=== PATIENT | female | born 1945 | race Caucasian/White ===

== ENCOUNTER 2022-07-14 10:12 | Inpatient (IN) | payer OTHER, MEDICARE ==
[~2022-07-14] VITALS: Ht 167.6 cm; Wt 67.4 kg
[2022-07-14 11:03] LABS: BASOPHILS ABSOLUTE AUTO 0.06 K/mm3 (0.00-0.23); BASOPHILS PERCENT AUTO 0 % (0-2); EOSINOPHILS PERCENT AUTO 2 % (0-6); Hematocrit 41.9 % (33.0-51.0); Hemoglobin 13.8 g/dL (11.5-16.0); IMMATURE GRAN ABSOLUTE AUTO 0.07 K/mm3 (0.00-0.10); IMMATURE GRAN PERCENT AUTO 1 % (0-1); LYMPHOCYTES ABSOLUTE AUTO 1.89 K/mm3 (0.84-5.20); LYMPHOCYTES PERCENT AUTO 14 % (21-46); MONOCYTES ABSOLUTE AUTO 0.55 K/mm3 (0.16-1.47); MONOCYTES PERCENT AUTO 4 % (4-13); Mean Corpuscular HGB 31.9 pg (26.0-34.0); Mean Corpuscular HGB Conc 32.9 g/dL (31.5-36.5); Mean Corpuscular Volume 97 fL (80-100); Mean Platelet Volume 10.2 fL (9.1-12.4); NEUTROPHILS ABSOLUTE AUTO 10.95 K/mm3 (1.96-9.15); NEUTROPHILS PERCENT AUTO 80 % (41-73); Platelet Count 269 K/mm3 (150-400); RDW Coefficient Variation 13.1 % (11.7-14.2); RDW Standard Deviation 46.5 fL (35.1-46.3); Red Blood Cell Count 4.32 M/mm3 (3.80-5.20); White Blood Cell Count 13.72 K/mm3 (4.00-11.30)
[2022-07-14 11:31] LABS: Bun/Creatinine Ratio 21.9 (12.0-20.0); Calcium, Blood 9.1 mg/dL (8.5-10.1); Creatinine, Blood 0.68 mg/dL (0.40-1.00); Potassium, Blood 3.9 mmol/L (3.5-5.5)
[2022-07-14] MEDS ORDERED: ATOR40TA PO (15:08)
[2022-07-14] MEDS ORDERED: CYMBALTA30 M2 PO (15:09)
[2022-07-14] MEDS ORDERED: IBU800 M1 PO (15:10)
--- NOTE | 2022-07-14 16:04 | NUR ---
ARRIVED FROM THE ED VIA JAIR, OLIVIA, A&OX4, C/O R HIP PAIN, REPORTS HAVING HX OF RA W/ NUMBNESS AND TINGLING TO BLE'S, DENIES ANY NEW NUMBNESS AND TINGLING, PEDAL PULSES PALPABLE, DR. ANGILN NOTIFIED OF PT ADMISSION, HERE TO SEE PT.
--- NOTE | 2022-07-14 17:37 | NUR ---
SUMMARY ER ADMIT TODAY FOR R HIP FX, DR. ANGLIN HERE TO SEE PT, PLAN FOR OR TOMORROW, MEDICATED WITH DILAUDID ONCE THIS SHIFT, PT TOLERATED FAIRLY WELL, REPORTS PAIN IS "BETTER THAN IT WAS" CONT. PULSE OX IN PLACE FOR HIGH RISK PAIN MANAGEMENT, NO ACUTE CHANGES THIS SHIFT.
[2022-07-15 04:33] LABS: BASOPHILS ABSOLUTE AUTO 0.04 K/mm3 (0.00-0.23); BASOPHILS PERCENT AUTO 0 % (0-2); EOSINOPHILS ABSOLUTE AUTO 0.15 K/mm3 (0.00-0.68); EOSINOPHILS PERCENT AUTO 1 % (0-6); Hematocrit 35.8 % (33.0-51.0); Hemoglobin 12.1 g/dL (11.5-16.0); IMMATURE GRAN ABSOLUTE AUTO 0.03 K/mm3 (0.00-0.10); IMMATURE GRAN PERCENT AUTO 0 % (0-1); LYMPHOCYTES PERCENT AUTO 10 % (21-46); MONOCYTES ABSOLUTE AUTO 0.75 K/mm3 (0.16-1.47); MONOCYTES PERCENT AUTO 6 % (4-13); Mean Corpuscular HGB 32.7 pg (26.0-34.0); Mean Corpuscular HGB Conc 33.8 g/dL (31.5-36.5); Mean Corpuscular Volume 97 fL (80-100); Mean Platelet Volume 10.1 fL (9.1-12.4); NEUTROPHILS ABSOLUTE AUTO 9.63 K/mm3 (1.96-9.15); NEUTROPHILS PERCENT AUTO 82 % (41-73); Platelet Count 206 K/mm3 (150-400); RDW Coefficient Variation 13.2 % (11.7-14.2); RDW Standard Deviation 46.9 fL (35.1-46.3)
[2022-07-15 05:02] LABS: Bun/Creatinine Ratio 21.7 (12.0-20.0); Calcium, Blood 9.2 mg/dL (8.5-10.1); Creatinine, Blood 0.79 mg/dL (0.40-1.00)
--- NOTE | 2022-07-15 05:55 | NUR ---
SHIFT SUMMARY PT A&OX4, PLEASANT AND COOPERATIVE. PAIN COVERED WITH 0.5MCG OF DILAUDID, WITH EFFECT. PT REMAINS ON OXYGEN, INCREASED TO 4.5L THEY PT STATED TO DESAT WHILE SLEEPING, CONT PULSE OX AT BEDSIDE. NPO SINCE MIDNIGHT. CALLS APPROPRIATELY, CALL LIGHT WITHIN REACH.
--- NOTE | 2022-07-15 07:56 | NUR ---
AWAKE, C/O 7/10 PAIN ON R HIP, MEDICATED PER EMAR, DENIES ANY NAUSEA OR SOB, SATS 87% ON 5L NC, PT PLACED ON 7L O2 VIA OXYMIZER, STATS IMPROVED TO 89%, CONT. TO MONITOR FOR ANY CHANGES.
--- NOTE | 2022-07-15 10:39 | NUR ---
ENCOURAGED TO USE IS, AND TO COUGH AND DEEP BREATHE, SATS CURRENTLY AT 90% ON 7L O2 OXYMIZER.
--- NOTE | 2022-07-15 11:56 | NUR ---
PT TAKEN TO DAY SURGERY.
--- NOTE | 2022-07-15 15:51 | NUR ---
PT ARRIVAL TO ICU... PT ARRIVED TO ICU 16 AT 1446 FROM THE PACU. THE PT WAS ON A NRB MASK AT 10L WITH O2 SATS IN THE MID 80'S TO LOW 90'S. THE PT WAS A&Ox4 BUT SLEEPY. L/S COARSE T/O WITH SLIGHT WHEEZES IN THE UPPER LOBES. RR WAS IN THE 20'S. PT WAS IN SINUS TACH IN THE LOW 100'S BP STABLE WITH MAPS >65. NO EDEMA NOTED ON ASSESSMENT. THE PT IS S/P RIGHT HIP REPAIR. THE PT IS C/O OF 8/10 PAIN TO THE RIGHT HIP. THE PT WAS PLACED ON THE AIRVO AT 50L AND 93% TO KEEP O2 SATS >89%. THE PT WAS MEDICATED FOR PAIN PER EMAR AND USED THE BED PASTOR TO VOID. WILL CONTINUE TO MONITOR.
--- NOTE | 2022-07-15 17:07 | NUR ---
SHIFT SUMMARY.... NO ACUTE NEGATIVE CHANGES ASSESSED SINCE PREVIOUS NOTE. THE PT CONTINUES ON THE AIRVO AT 50L AND 95% WITH O2 SATS >90%. L/S COARSE T/O WITH SCATTERED WHEEZES THAT RESPOND TO NEBULIZER TREATMENTS. THE PT HAS BEEN MEDICATED FOR PAIN PER EMAR. NEW ORDERS FOR PO OXYCODONE OBTAINED FROM DR. FERNANDEZ. THE PT HAS USED THE BEDPAD TO VOID SEVERAL TIMES. THE PT'S HR AND BP CONTINUES TO BE STABLE. CALL LIGHT IN REACH WILL CONTINUE TO MONITOR UNTIL REPORT IS GIVEN TO ONCOMING RN.
--- NOTE | 2022-07-15 18:04 | NUR ---
PT UPDATE... WHILE THE PT WAS EATING HER DINNER THE PT SAID THAT SOME OF THE FOOD "WENT DOWN THE WRONG PIPE." THE PT'S O2 SATS DROPPED DOWN TO THE 60'S AND SHE THREW UP. RT WAS CALLED, THE PT'S AIRVO FLOW WAS INCREASED TO 60L AND 95%, THE PT'S O2 SATS IMPROVED. L/S WERE COARSE T/O AND SOUND THE SAME THE PREVIOUS ASSESSMENT. THE PT TOLD THIS RN THAT SHE HAS "THESE SAME ISSUES AT HOME ONCE IN A WHILE." WILL CONTINUE TO MONITOR.
--- NOTE | 2022-07-15 19:10 | NUR ---
TOOK OVER CARE OF PT AT 1900, PT RESTING ON AIRVO 60L 92%. SCANT SHADOWING NOTED ON RT FEMUR DRESSINGS. ICE PACKS IN PLACE, PILLOW PLACED BETWEEN KNEES.
[2022-07-15 20:37] LABS: Hematocrit 37.2 % (33.0-51.0); Hemoglobin 12.2 g/dL (11.5-16.0)
--- NOTE | 2022-07-16 04:54 | NUR ---
SUMMARY NEURO: WNL- HX OF RA LUNGS: PT IS ON 60L 95% AIRVO. EXP. WHEEZES HEARD. PT PULLING 500ML ON INCENTIVE SPIROMETER. PT IS BECOMING MORE FRAGILE SHIFT GOES ON WITH OXYGEN REQUIREMENTS AND DESATS TO LOW 80'S WHEN COUGHING. WET COUGH WITH NO SPUTUM. NO CRACKLES HEARD IN BASES AT THIS TIME. CV: PULSES PRESENT THROUGHOUT WITHOUT THE USE OF DOPPLER. PT IS NSR, BORDERLINE BLOOD PRESSURES. 2L NS BOLUS GIVEN AND FLUIDS STARTED. MAP'S IN THE HIGH 60'S. SCD'S IN PLACE. GI: WNL- CONCERN FOR ASPIRATION, SWALLOW EVAL ORDERED. : WNL- PT UTILIZING FRACTURE PASTOR SKIN: INCISION TO RIGHT LATERAL THIGH, TWO SURGICAL DRESSING INTACT. NO NEW SHAWOWING OF DRAINAGE SINCE THE BEGINNING OF THIS SHIFT. CHG BATH COMPLETED
--- NOTE | 2022-07-16 12:10 | NUR ---
TRANSFER TO SURGICAL FLOOR - RM 218 VIA HOSPITAL BED, 4 PERSON TRANSFER TO BED. ALERT, ORIENTED, PLEASANT & THANKFUL. RT IN ROOM TO SET UP HIGH FLOW HEATED O2. CONT BIOX SET UP. PT HAS MOIST COUGH, PRODUCTIVE, STRONG. LUNGS w/ EXP WHEEZE T/O. DR FERNANDEZ CALLED FOR TYLENOL PER PT REQUEST FOR SOARES. PPP. R HIP w/ AQUACEL x 2. SCANT DRNG. 1+ EDEMA TO R HIP.
--- NOTE | 2022-07-16 17:22 | NUR ---
SHIFT SUMMARY PT HAS DONE WELL SINCE ARRIVING FROM PCU. STRONG PROD COUGH. CONT BIOX IN PLACE. IVF & ABX CONTINUE TO INFUSE. PT ORDERED & WILL WORK w/ THEM TOMORROW.
[2022-07-17 05:01] LABS: Albumin, Blood 2.3 g/dL (3.4-5.0); Anion Gap 6 mmol/L (6-16); Blood Urea Nitrogen 22 mg/dL (8-24); Bun/Creatinine Ratio 38.9 (12.0-20.0); CO2, Blood 25 mmol/L (21-32); Calcium, Blood 8.8 mg/dL (8.5-10.1); Chloride, Blood 112 mmol/L (98-108); Creatinine, Blood 0.57 mg/dL (0.40-1.00); Glomerular Filtration Rate 92 (60-); Glucose, Blood 162 mg/dL (70-99); Phosphorus, Blood 1.8 mg/dL (2.5-4.9); Potassium, Blood 3.8 mmol/L (3.5-5.5); Sodium, Blood 143 mmol/L (136-145)
--- NOTE | 2022-07-17 06:12 | NUR ---
CALL PLACED TO HOSPITALIST AT APPROX 0610. PT HAS HAD INCREASED BP THROUGHOUT THE SHIFT AND HAS REPORTED INCREASED ANXIETY. HOSPITALIST ORDERED HYDRALAZINE FOR BP ABOVE 160, AND ATIVAN FOR ANXIETY. HOSPITALIST ALSO ORDERED CARDIAC MONITORING, ORDERS ADDED- WILL ADMINISTER ONCE APPROVAL THROUGH PHARMACY HAS GONE THROUGH.
--- NOTE | 2022-07-17 14:09 | NUR ---
07/17/22 1409 Rossy Leal VERIFICATIONS: EDIT CHART.
--- NOTE | 2022-07-17 18:28 | NUR ---
SHIFT SUMMARY PT IS VERY DROWSY THIS AFTERNOON, BUT RIGHTFULLY SO. SHE HAD 2 THERAPY SESSIONS, WHICH SHE DID WELL. HAS BEEN DEEP BREATHING & COUGHING STRONGLY T/O SHIFT. RT WEANED HER DOWN FROM 60L TO 50L. WAS PLANNING TO MEDICATE FOR PAIN w/ DINNER BUT PT WAKES TO NAME THEN FALLS BACK ASLEEP AFTER A FEW WORDS SO WILL HOLD FOR NOW. TOP AQUACEL CHANGED DUE TO SMALL AMOUNT DRNG.
--- NOTE | 2022-07-18 04:18 | NUR ---
SUMMARY PT REMAINS ON AIRVO. PT GETS SOB WITH MINIMAL EXERTION. PT REPORTS DISCOMFORT WITH MOVEMENT IN R HIP. PT PAIN TX PER EMAR WITH RELIEF. PT HAS BEEN SLEEPING WELL. PT CURRENTLY SLEEPING AND IN NO DISTRESS. CALL LIGHT IN REACH.
--- NOTE | 2022-07-18 18:31 | NUR ---
SHIFT SUMMARY PATIENT ALERT AND ORIENTED WHEN AWAKE. AIRVO WEANED FROM 80% FIO2 DOWN TO 57% FIO2 ON 50L HUMID HIFLOW. SATTING 90-92%. CRACKLES IN LEFT BASE, EXP WHEEZE THROUGHOUT. OCNGESTED COUGH. SOB AND WEAKNESS WITH EXERTION. SBA TO BSC AND CHAIR. MEDICATED FOR PAIN PRN. TOLERATING REGULAR DIET, LIKES ENSURES. AQUACELS TO RIGHT WNL. PATIENT SON VISITED X2. WILL REPORT TO WATER MANAGER.
--- NOTE | 2022-07-19 04:48 | NUR ---
SUMMARY PT REMAINS ON AIRVO. PT STILL HAS SOB WITH MINIMAL EXERTION. PT REPORTED INCREASED ANXIETY AND WAS TX PER EMAR WITH RELIEF. PT PAIN WAS MANAGED WELL. PT WAS ABLE TO SLEEP THIS SHIFT. PT CURRENTLY SLEEPING AND IN NO DISTRESS. PT DRESSING CDI. PT CALL LIGHT IN REACH.
--- NOTE | 2022-07-19 16:23 | NUR ---
SHIFT SUMMARY PT A&OX4, VSS, AIRVO 40L 51% FOR OXYGEN SAT 93%, TELE NSR @ 86 BPM, BIOX ON, PAYAL PO, UP TO CHAIR FOR MEALS, STAND PIVOT TO CHAIR/BSC, VOIDING WELL. POD4 R HIP NAILING, 2 AQUACEL DRESSINGS CHANGED TODAY, WBAT/FWW/GB. PAIN MANAGED WITH OXY 5MG & TYLENOL PRN, DENIED ANXIETY TODAY. WILL REPORT TO ONCOMING NOC RN.
[2022-07-20 03:56] LABS: Base Excess Venous 8.3 mmol/L; Bicarbonate Venous 31.3 mmol/L (24.0-30.0); PCO2 Venous 41.2 mmHg (38-42); pH Blood Venous 7.49 (7.34-7.37)
[2022-07-20 04:12] LABS: BASOPHILS ABSOLUTE AUTO 0.05 K/mm3 (0.00-0.23); BASOPHILS PERCENT AUTO 0 % (0-2); EOSINOPHILS ABSOLUTE AUTO 0.01 K/mm3 (0.00-0.68); EOSINOPHILS PERCENT AUTO 0 % (0-6); Hematocrit 34.3 % (33.0-51.0); Hemoglobin 11.5 g/dL (11.5-16.0); IMMATURE GRAN PERCENT AUTO 2 % (0-1); LYMPHOCYTES ABSOLUTE AUTO 1.74 K/mm3 (0.84-5.20); LYMPHOCYTES PERCENT AUTO 14 % (21-46); MONOCYTES ABSOLUTE AUTO 1.25 K/mm3 (0.16-1.47); MONOCYTES PERCENT AUTO 10 % (4-13); Mean Corpuscular HGB 31.7 pg (26.0-34.0); Mean Corpuscular HGB Conc 33.5 g/dL (31.5-36.5); Mean Corpuscular Volume 95 fL (80-100); Mean Platelet Volume 10.1 fL (9.1-12.4); NEUTROPHILS ABSOLUTE AUTO 9.01 K/mm3 (1.96-9.15); NEUTROPHILS PERCENT AUTO 73 % (41-73); NRBC ABSOLUTE 0.02 K/mm3 (0.00-0.02); NRBC Auto 0.2 /100 WBC (0.0-0.2); Platelet Count 309 K/mm3 (150-400); RDW Coefficient Variation 13.1 % (11.7-14.2); RDW Standard Deviation 45.3 fL (35.1-46.3); Red Blood Cell Count 3.63 M/mm3 (3.80-5.20); White Blood Cell Count 12.36 K/mm3 (4.00-11.30)
--- NOTE | 2022-07-20 04:28 | NUR ---
SHIFT SUMMARY NO ACUTE CHANGES OVERNIGHT. PT ON AIRVO HIGH FLOW 40LPM WITH 50FIO2 SATURATING AT 94%. PT HAS DECREASE LUNG BASES, WITH SOME WHEEZING. PT HAS BREATHING TREATMENTS T/O THE SHIFT. DENIES SOB. POD5 R HIP NAILING WITH 2 AQUACEL DRESSING. DRESSING APPEARS TO HAVE SOME MODERATE SIZE SHADOWING.DENIES N/T. AMBULATES WITH 1PA ON BSC/CHAIR/BED. VOIDING. AOX4. USE CALL LIGHT, MAKE NEEDS KNOWN. TOLERATING PO INTAKE. DENIES N/V. [place] LIGHT WITHIN REACH.WILL PROVIDE REPORT TO ONCOMING NURSE.
[2022-07-20 04:48] LABS: Bun/Creatinine Ratio 43.4 (12.0-20.0); Calcium, Blood 8.5 mg/dL (8.5-10.1); Creatinine, Blood 0.55 mg/dL (0.40-1.00); Potassium, Blood 3.7 mmol/L (3.5-5.5)
--- NOTE | 2022-07-20 19:51 | NUR ---
SHIFT SUMMARY: POD 5 RIGHT HIP PINNING PATIENT IS A&OX4. VS ARE WNL AND IS NOW ON 4L HIGH FLOW NC WITH >90% OXYGEN SATS. SHE DENIES SOB OR CHEST PAIN THROUGHOUT SHIFT. PATIENT HAS REFUSED PAIN MEDICATIONS BUT VERBALIZED SHE IS AWARE OF PRN PAIN MEDICATIONS. HER RIGHT HIP HAS ONE AQUACEL THAT WAS CHANGED TODAY THAT IS C/D/I. DENIES NUMBNESS AND TINGLING. SHE IS A SBA WITH AMBULATION BUT INDEP. TO THE BSC. SHE IS TOLERATING PO INTAKE AND IS VOIDING/PASSING GAS. CALLS APPROPRIATELY. CALL LIGHT WITHIN REACH. THE PLAN IS TO HAVE THE PATIENT BEING APPROPRIATELY TITRATED WITH OXYGEN AND IF SHE CONTINUES TO BE STABLE OXYGENATION DEL CID SHE COULD POSSIBLY GO HOME WITH HOME HEALTH AND HOME O2 TOMORROW.
--- NOTE | 2022-07-21 04:54 | NUR ---
SHIFT SUMMARY POD6-R HIP REPAIR, AQUACEL DRESSING C/D/I. REPORTS MILD 3/10 CRAMPING R HIP PAIN, MEDICATED 1X c 5MG ROXICODONE. VSS. TELE NSR HR 79. SPO2 >93% ON 4L HF NC, REPORTS BREATHING "BETTER," DENIES DYSPNEA @REST, E/U RESP. DIM BREATH SOUNDS.REPORTS MILD UPSET STOMACH, DENIES N/V, STATES NO BM "IN FEW DAYS" NONE CHARTED IN 6 DAYS, GAVE PRUNE JUICE WILL INFORM DAY SHIFT. UP TO BSC IND OR c MINIMAL ASSISTANCE. PT WANTING TO DC HOME TODAY. WILL MONITOR UNTIL DAY NURSE ASSUMES CARE.
[2022-07-21] MEDS ORDERED: ALBU2.5V5 INH (14:42)
[2022-07-21] MEDS ORDERED: NORVASC5 MG PO (14:43)
[2022-07-21] MEDS ORDERED: GUAI600T33 PO (14:43)
[2022-07-21] MEDS ORDERED: PRED20 PO (14:44)
[2022-07-21] MEDS ORDERED: AMOCLA500 PO ×2 (14:44→14:47)
[2022-07-21] MEDS ORDERED: VISBIOME 112.51 EACH PO (14:46)
--- NOTE | 2022-07-21 17:20 | NUR ---
DISCHARGE SUMMARY S/P R HIP FX REPAIR, A/OX 4, VSS, PT TITRATED FROM 4LO2 DOWN TO 1LO2 BUT NEEDED 2L O2 WHILE AMBULATING, PAIN WELL CONTROLLED PER EMAR, AQUACELL TO R HIP CHANGED JUST PRIOR TO SHIFT CHANGE, PT AND HER SON REPORT THEY ARE EAGER TO GO HOME. HOME O2 EVAL CALLED TO RT AND HOME HEALTH ARRANGED BY CARE MANAGEMENT. DISCHARGE INFORMATION DISCUSSED WITH THE PATIENT. IV ACCES REMOVED PRIOR TO DISCHARGE. PT ESCORTED OUT VIA WC TO PRIVATE AUTO TO GO HOME.
== END 2022-07-21 15:20 | disposition home or self-care (01) | DRG 480 ==
LOC: ER 10:12 → SURS 14:12 → ICUW 14:12 → SURS 15:33 → ICUW 07-15 14:48 → SURS 07-16 12:21
PROVIDERS: Emergency Medicine; Internal Medicine; Nurse Practitioner Acute Care; ADMIT Internal Medicine
PROC: 0QS636Z Reposition Right Upper Femur with Intramedullary Internal Fixation Device, Percutaneous Approach (ICD-10-PCS; principal; 2022-07-14)
PROC: 5A0955A Assistance with Respiratory Ventilation, Greater than 96 Consecutive Hours, High Flow/Velocity Cannula (ICD-10-PCS; 2022-07-14)
DX: S72.141A Displaced intertrochanteric fracture of right femur, initial encounter for closed fracture (principal); J69.0 Pneumonitis due to inhalation of food and vomit; J96.01 Acute respiratory failure with hypoxia; E44.0 Moderate protein-calorie malnutrition; J44.1 Chronic obstructive pulmonary disease with (acute) exacerbation; J44.0 Chronic obstructive pulmonary disease with (acute) lower respiratory infection; Z28.21 Immunization not carried out because of patient refusal; M06.9 Rheumatoid arthritis, unspecified; F17.210 Nicotine dependence, cigarettes, uncomplicated; Z68.21 Body mass index [BMI] 21.0-21.9, adult; W01.0XXA Fall on same level from slipping, tripping and stumbling without subsequent striking against object, initial encounter; Y93.01 Activity, walking, marching and hiking; Y92.009 Unspecified place in unspecified non-institutional (private) residence as the place of occurrence of the external cause
CPT/HCPCS: 36415; 71045; 71260; 73501; 73502; 80048; 80069; 82803; 83605; 84145; 85014; 85018; 85025; 87040; 92526; 92610; 93005; 93010; 94640; 94664; 94761; 94762; 96374; 96375; 97110; 97116; 97162; 97166; 97530; 97535; 99285-25; A9270; C1713; J0295; J0360; J0690; J1100; J1170; J2060; J2405; J2704; J2930; J3010; J7030; J7120; J7512; Q9967

== ENCOUNTER → 2022-12-25 | Outpatient (CLI) | payer MEDICARE ==
[~2022-12-25] MED LIST: ALBU2.5V5 INH; AMOCLA500 PO; ATOR40TA PO; CYMBALTA30 M2 PO; GUAI600T33 PO; IBU800 M1 PO; NORVASC5 MG PO; PRED20 PO; VISBIOME 112.51 EACH PO
== END ==
LOC: PLD 08:14 → LAB SHORT 08:14
DX: D48.5 Neoplasm of uncertain behavior of skin (principal)
CPT/HCPCS: 88305

== ENCOUNTER 2023-07-05 14:19 | Emergency (ER) | payer MEDICARE ==
[~2023-07-05] VITALS: Ht 167.6 cm; Wt 63.5 kg
[2023-07-05 14:23] VITALS: BP 153/92
[2023-07-05 14:52] LABS: BASOPHILS ABSOLUTE AUTO 0.07 K/mm3 (0.00-0.23); BASOPHILS PERCENT AUTO 1 % (0-2); EOSINOPHILS ABSOLUTE AUTO 0.15 K/mm3 (0.00-0.68); EOSINOPHILS PERCENT AUTO 2 % (0-6); Hematocrit 41.1 % (33.0-51.0); Hemoglobin 14.1 g/dL (11.5-16.0); IMMATURE GRAN ABSOLUTE AUTO 0.03 K/mm3 (0.00-0.10); IMMATURE GRAN PERCENT AUTO 0 % (0-1); LYMPHOCYTES ABSOLUTE AUTO 2.07 K/mm3 (0.84-5.20); LYMPHOCYTES PERCENT AUTO 20 % (21-46); MONOCYTES ABSOLUTE AUTO 0.66 K/mm3 (0.16-1.47); MONOCYTES PERCENT AUTO 6 % (4-13); Mean Corpuscular HGB 31.5 pg (26.0-34.0); Mean Corpuscular HGB Conc 34.3 g/dL (31.5-36.5); Mean Corpuscular Volume 92 fL (80-100); Mean Platelet Volume 9.7 fL (9.1-12.4); NEUTROPHILS ABSOLUTE AUTO 7.28 K/mm3 (1.96-9.15); NEUTROPHILS PERCENT AUTO 71 % (41-73); Platelet Count 385 K/mm3 (150-400); RDW Coefficient Variation 13.3 % (11.7-14.2); RDW Standard Deviation 45.6 fL (35.1-46.3); Red Blood Cell Count 4.48 M/mm3 (3.80-5.20); White Blood Cell Count 10.26 K/mm3 (4.00-11.30)
[2023-07-05 15:19] LABS: Albumin, Blood 3.2 g/dL (3.4-5.0); Albumin/Globulin Ratio 0.7 (0.8-1.8); Bilirubin, Total 0.6 mg/dL (0.1-1.0); Bun/Creatinine Ratio 25.8 (12.0-20.0); Calcium, Blood 9.8 mg/dL (8.5-10.1); Creatinine, Blood 0.66 mg/dL (0.40-1.00); Globulin, Blood 4.8 g/dL (2.2-4.0); Potassium, Blood 3.4 mmol/L (3.5-5.5)
[2023-07-05] MEDS ORDERED: HYDR1TAB94 PO ×3 (17:26→17:28)
[2023-07-05] MEDS ORDERED: METPRE4DP PO (17:26)
== END 2023-07-05 17:35 | disposition home or self-care (01) ==
LOC: ER 14:19
PROVIDERS: Physician Assistant
DX: M06.9 Rheumatoid arthritis, unspecified (principal); F17.200 Nicotine dependence, unspecified, uncomplicated
CPT/HCPCS: 80053; 85025; 99283; A9270